=== PATIENT | male | born 1995 | race Caucasian/White ===

== ENCOUNTER 2019-07-22 17:32 | Emergency (ER) | payer MEDICAID ==
[~2019-07-22] VITALS: Ht 180.3 cm; Wt 77.3 kg
[2019-07-22 17:33] VITALS: Ht 180.3 cm; Wt 77.3 kg
[2019-07-22] MEDS ORDERED: CELEXA40 MG PO (17:34)
[2019-07-22] MEDS ORDERED: DEPAKOTE ER500 MG PO (17:34)
[2019-07-22] MEDS ORDERED: TOPROL XL50 MG PO (17:35)
[2019-07-22] MEDS ORDERED: ADDERALL 20 MG20 M1 PO (17:35)
[2019-07-22 18:59] VITALS: BP 129/74
== END 2019-07-22 19:00 | disposition home or self-care (01) ==
LOC: D.ER 17:32
DX: F41.9 Anxiety disorder, unspecified (principal); F43.0 Acute stress reaction

== ENCOUNTER 2019-08-21 15:17 | Emergency (ER) | payer OTHER ==
[~2019-08-21] VITALS: Ht 180.3 cm; Wt 81.6 kg
[~2019-08-21 15:17] MED LIST: ADDERALL 20 MG20 M1 PO; CELEXA40 MG PO; DEPAKOTE ER500 MG PO; TOPROL XL50 MG PO
[2019-08-21 15:28] VITALS: Ht 180.3 cm; Wt 81.6 kg
[2019-08-21] MEDS ORDERED: ULTRAM50 MG PO (17:13)
[2019-08-21 17:45] VITALS: BP 122/75
== END 2019-08-21 17:45 | disposition home or self-care (01) ==
LOC: D.ER 15:17
DX: S93.401A Sprain of unspecified ligament of right ankle, initial encounter (principal); X58.XXXA Exposure to other specified factors, initial encounter

== ENCOUNTER 2019-08-28 17:58 | Emergency (ER) | payer OTHER ==
[~2019-08-28 17:58] MED LIST changes: +ULTRAM50 MG PO
[2019-08-28 18:06] VITALS: Ht 180.3 cm
[2019-08-28 18:37] LABS: BASOPHILS 0.1 % (0-2); EOSINOPHILS 1.4 % (0-7); HEMATOCRIT 46.8 % (42.0-54.0); HEMOGLOBIN 15.8 g/dL (13.5-17.5); LYMPHOCYTES 36.3 % (15-50); MCHC 33.8 g/dL (31.0-37.0); MCV 91.8 fL (80.0-100.0); MEAN PLATELET VOLUME 9.8 fL (7.4-10.4); MONOCYTES 9.4 % (2-11); NEUTROPHILS 51.8 % (40-80); RDW 13.6 % (11.5-14.5); WBC 7.8 10x3/uL (4.8-10.8)
[2019-08-28 18:44] LABS: PLATELET COUNT 238 10x3/uL (130-400)
[2019-08-28 18:47] LABS: CALC OSMOLALITY 282 mosm/kg (275-300); CALCIUM 8.9 mg/dL (8.5-10.1); CARBON DIOXIDE 27.8 mmol/L (21.0-32.0); CHLORIDE - SERUM 106 mmol/L (98-107); CREATININE - SERUM 1.2 mg/dL (0.6-1.3); GLUCOSE 125 mg/dL (74-106); POTASSIUM - SERUM 3.9 mmol/L (3.5-5.1); SODIUM 142 mmol/L (136-145); UREA NITROGEN 11 mg/dL (7-18); eGFR NON AFRICAN AMERICAN 81 mL/min (90-120)
[2019-08-28 18:49] LABS: BILIRUBIN NEGATIVE (NEGATIVE); GLUCOSE NEGATIVE (NEGATIVE); KETONE NEGATIVE (NEGATIVE); NITRITE NEGATIVE (NEGATIVE); UROBILINOGEN NORMAL (NORMAL)
[2019-08-28 18:53] LABS: ALBUMIN 3.5 g/dL (3.4-5.0); ALKALINE PHOSPHATASE 88 U/L (30-120); ALT (SGPT) 17 U/L (10-68); BILIRUBIN - TOTAL 0.32 mg/dL (0.2-1.3); PROTEIN - SERUM 6.9 g/dL (6.4-8.2)
[2019-08-28 18:56] LABS: UDS - AMPHET POSITIVE QUAL (NEGATIVE); UDS - BARB NEGATIVE QUAL (NEGATIVE); UDS - BENZO NEGATIVE QUAL (NEGATIVE); UDS - COCAINE NEGATIVE QUAL (NEGATIVE); UDS - OPIATE NEGATIVE QUAL (NEGATIVE); UDS - PCP NEGATIVE QUAL (NEGATIVE); UDS - THC NEGATIVE QUAL (NEGATIVE)
--- NOTE | 2019-08-28 20:11 | NUR ---
DR. GREENE NOTIFIED AND SITTER ORDERED. SITTER AT BEDSIDE. NOTIFIED CHARGE NURSE AND ATTENDING IN REGARDS TO ASSESSMENT FINDINGINS. RESOURCES GIVEN TO PT AND SAFETY PLAN INITIATED.
[2019-08-28 22:14] VITALS: BP 122/72
== END 2019-08-28 23:05 ==
LOC: D.ER 17:58
PROVIDERS: Family Medicine
DX: F32.9 Major depressive disorder, single episode, unspecified (principal); F15.10 Other stimulant abuse, uncomplicated; R45.851 Suicidal ideations

== ENCOUNTER 2019-09-13 19:21 | Emergency (ER) | payer OTHER ==
[~2019-09-13] VITALS: Ht 180.3 cm; Wt 74.8 kg
[2019-09-13 19:30] VITALS: Ht 180.3 cm; Wt 74.8 kg
[2019-09-13 20:10] LABS: BILIRUBIN NEGATIVE (NEGATIVE); GLUCOSE NEGATIVE (NEGATIVE); KETONE NEGATIVE (NEGATIVE); NITRITE NEGATIVE (NEGATIVE); UROBILINOGEN NORMAL (NORMAL)
[2019-09-13 20:16] LABS: BASOPHILS 0.1 % (0-2); EOSINOPHILS 0.2 % (0-7); HEMATOCRIT 47.3 % (42.0-54.0); HEMOGLOBIN 16.1 g/dL (13.5-17.5); IMMATURE GRANULOCYTES 0.7 % (0-5); MCH 31.3 pg (26.0-34.0); MCV 91.8 fL (80.0-100.0); MONOCYTES 9.2 % (2-11); NEUTROPHILS 60.8 % (40-80); PLATELET COUNT 229 10x3/uL (130-400); RBC 5.15 10x6/uL (4.20-6.10); RDW 12.9 % (11.5-14.5); WBC 8.8 10x3/uL (4.8-10.8)
[2019-09-13 20:21] LABS: UDS - AMPHET POSITIVE QUAL (NEGATIVE); UDS - BARB NEGATIVE QUAL (NEGATIVE); UDS - BENZO NEGATIVE QUAL (NEGATIVE); UDS - COCAINE NEGATIVE QUAL (NEGATIVE); UDS - OPIATE NEGATIVE QUAL (NEGATIVE); UDS - PCP NEGATIVE QUAL (NEGATIVE); UDS - THC NEGATIVE QUAL (NEGATIVE)
[2019-09-13 20:44] LABS: CALC OSMOLALITY 271 mosm/kg (275-300); CALCIUM 9.1 mg/dL (8.5-10.1); CARBON DIOXIDE 29.7 mmol/L (21.0-32.0); CHLORIDE - SERUM 100 mmol/L (98-107); CREATININE - SERUM 1.1 mg/dL (0.6-1.3); GLUCOSE 101 mg/dL (74-106); POTASSIUM - SERUM 3.6 mmol/L (3.5-5.1); SODIUM 137 mmol/L (136-145); UREA NITROGEN 8 mg/dL (7-18); eGFR NON AFRICAN AMERICAN 90 mL/min (90-120)
[2019-09-13 20:58] LABS: ALBUMIN 4.2 g/dL (3.4-5.0); ALKALINE PHOSPHATASE 83 U/L (30-120); ALT (SGPT) 23 U/L (10-68); BILIRUBIN - TOTAL 0.39 mg/dL (0.2-1.3); MAGNESIUM - SERUM 2.2 mg/dL (1.8-2.4); VALPROIC ACID (DEPAKOTE) 88.9 ug/mL (50.0-100.0)
[2019-09-14 01:52] VITALS: BP 132/89
== END 2019-09-14 06:46 ==
LOC: D.ER 19:21
PROVIDERS: Family Medicine
DX: R41.82 Altered mental status, unspecified (principal); R45.851 Suicidal ideations